=== PATIENT | female | born 1960 | race Caucasian/White ===

== ENCOUNTER → 2017-09-17 | Outpatient (CLI) | payer BC ==
--- NOTE | 2017-09-18 12:20 | USB ---
Reason for exam: clinical finding. History: Patient is postmenopausal. Family history of breast cancer in maternal grandmother and breast cancer in mother at age 60. Benign MG stereo VAD BX RT of the right breast, August 01, 2013. Took hormonal contraceptives for 2 years. Physical Findings: Nurse Summary: all soft, nodular, movable (nurse ts). US Breast RT Right complete breast ultrasound includes all four quadrants, the retroareolar region and axilla. Finding demonstrates a 0.3 x 0.2 x 0.3cm lesion too small to characterize at 4 o'clock, a 0.7 x 0.3 x 0.5cm mixed lesion at 5 o'clock and a 0.5 x 0.4 x 0.3cm lesion too small to characterize at 11 o'clock. These results were verbally communicated with the patient and result sheet given to the patient on 09/17/17. ASSESSMENT: Probably benign, BI-RAD 3 RECOMMENDATION: Ultrasound of the right breast in 6 months. Return to routine screening mammogram schedule for both breasts. Manage on a clinical basis with regard to patient's resolved pain. Back on schedule for November 2017.
== END | disposition home or self-care (01) ==
LOC: RADUSWWP 15:25
PROVIDERS: ATTEND Obstetrics & Gynecology
DX: N64.4 Mastodynia (principal)

== ENCOUNTER 2017-11-13 08:42 | Day surgery (SDC) | payer BC ==
[2017-11-07 15:18] VITALS: BMI 41.1
[~2017-11-13 08:42] MED LIST: ceFAZolin IN SWFI 2 GM/20 ML SYRINGE IVP ONE
[2017-11-13] MEDS ORDERED: LIDOCAINE 1% 20 ML VIAL (10MG/ML) FOR IV START INTRADERMA ONE (09:37)
[2017-11-13] MEDS ORDERED: LACTATED RINGERS 1,000 ML IV ONE (09:37)
[2017-11-13] MEDS: DEXAMETHASONE SOD PHOSPHATE 4 MG/ML 1 ML VIAL IV ONE ×2 (09:38→13:08)
[2017-11-13] MEDS ORDERED: ONDANSETRON 4 MG/2 ML VIAL IVP ONE ×2 (09:38→12:17)
[2017-11-13] MEDS ORDERED: ONDANSETRON 4 MG/2 ML VIAL ONE (09:45)
[2017-11-13 09:46] LABS: Glucose,Whole Blood 164 mg/dL (75-99)
--- NOTE | 2017-11-13 10:18 | P.HPOR ---
History of Present Illness H&P Date: 11/13/17 Chief Complaint: Left knee pain The patient's a 56-year-old retired female who presents with progressive left knee pain for the past several months. She notes intermittent giving way. She' s been taking anti-inflammatories with minimal relief. Review of Systems Constitutional: Reports as per HPI Past Medical History Past Medical History: Diabetes Mellitus, Hyperlipidemia, Hypertension, Osteoarthritis (OA) History of Any Multi-Drug Resistant Organisms: None Reported Past Surgical History: Back Surgery, Hysterectomy Past Anesthesia/Blood Transfusion Reactions: Motion Sickness, Postoperative Nausea & Vomiting (PONV) Smoking Status: Never smoker - Past Family History Mother Family Medical History: Cancer Additional Family Medical History / Comment(s): BREAST CANCER Medications and Allergies Home Medications Medication Instructions Recorded Confirmed Type Chlorthalidone 50 mg PO DAILY 11/07/17 11/13/17 History Cinnamon Bark [Cinnamon] 1,000 mg PO DAILY 11/07/17 11/13/17 History Enalapril [Vasotec] 20 mg PO BID 11/07/17 11/13/17 History Garlic 1 each PO DAILY 11/07/17 11/13/17 History INSULIN LISPRO (humaLOG) [humaLOG] 10 units SQ 1000,1500 11/07/17 11/13/17 History INSULIN LISPRO (humaLOG) [humaLOG] 20 units SQ TID-W/MEALS 11/07/17 11/13/17 History Insulin Glargine [Lantus] 70 unit SQ HS 11/07/17 11/13/17 History [place]-3 Fatty Acids/Fish Oil [Fish 1 each PO DAILY 11/07/17 11/13/17 History Oil 1,000 mg Softgel] Pravastatin Sodium [Pravachol] 40 mg PO DAILY 11/07/17 11/13/17 History Allergies Allergy/AdvReac Type Severity Reaction Status Date / Time amoxicillin Allergy Rash/Hives Verified 11/13/17 09:24 erythromycin base Allergy Rash/Hives Verified 11/13/17 09:24 orange Allergy Rash/Hives Verified 11/13/17 09:24 Penicillins Allergy Rash/Hives Verified 11/13/17 09:24 Physical Examination - Knee left Appearance: effusion Effusion grade: grade 1 Tenderness with palpation: medial Pain: with flexion Gait: limping ROM: extension: -10 degrees ROM: flexion: 100 degrees Strength: extension: 5/5 Strength: flexion: 5/5 Meniscal tests: medial meniscal tests: positive (Positive Steven's) Results - Labs Labs: Abnormal Lab Results - Last 24 Hours (Table) 11/13/17 Range/Units 09:42 POC Glucose (mg/dL) 164 H (75-99) mg/dL - Diagnostic results Knee x-ray: image reviewed (Moderate to severe left knee medial compartment osteoarthrosis) Assessment and Plan Assessment: Left knee internal derangementmedial meniscal tear Left knee medial compartment osteoarthrosis Insulin-dependent diabetes Increased body mass index (1) Acute meniscal tear of left knee Current Visit: Yes Status: Acute Priority: Medium Code(s): S83.207A - UNSP TEAR OF UNSP MENISCUS, CURRENT INJURY, LEFT KNEE, INIT SNOMED Code(s): 731412213 Plan: I talked to the patient length regarding her condition and treatment options. At this point she was having significant pain and mechanical symptoms that limited her. She opted to proceed with arthroscopic evaluation with probable partial medial meniscectomy. Risks and benefits were discussed at length in layman's terms. We will likely perform that as an outpatient procedure.
[2017-11-13] MEDS ORDERED: SUCCINYLCHOLINE CHLORIDE 100 MG/5 ML SYR IV ONE (10:39)
[2017-11-13] MEDS ORDERED: NEOSTIGMINE 1 MG/ML 10 ML VIAL ONE (10:39)
[2017-11-13] MEDS ORDERED: fentaNYL (PF) 50 MCG/ML 2 ML AMP ONE (10:39)
[2017-11-13] MEDS ORDERED: KETOROLAC 30 MG/ML 1 ML VIAL ONE (10:39)
[2017-11-13] MEDS ORDERED: LIDOCAINE 1% INJ 10MG/ML (20 ML MDV) ONE (10:39)
[2017-11-13] MEDS ORDERED: MIDAZOLAM 2 MG/2 ML VIAL ONE (10:39)
[2017-11-13] MEDS ORDERED: SODIUM CHLORIDE 0.9% 50 ML with CLINDAMYCIN 600 MG IV ONE ×2 (10:39)
[2017-11-13] MEDS ORDERED: GLYCOPYRROLATE 0.2 MG/ML 2 ML VIAL ONE (10:39)
[2017-11-13] MEDS ORDERED: ROCURONIUM BROMIDE 10 MG/ML 10 ML VIAL IV ONE (10:39)
[2017-11-13] MEDS ORDERED: PROPOFOL 10 MG/ML 20 ML VIAL IV ONE (10:39)
[2017-11-13] MEDS ORDERED: EPINEPHrine (PF) 1 ML in SODIUM CHLORIDE 0.9% IRRIGATIO 3,000 ML IRRIGATION ONE ×4 (10:44)
[2017-11-13 11:46] VITALS: TEMP 97
--- NOTE | 2017-11-13 11:46 | P.OP ---
Date of Procedure: 11/13/17 Preoperative Diagnosis: left knee internal derangement Postoperative Diagnosis: left knee posterior medial meniscal tear/anterior to posterior lateral meniscal tear/ reactive synovitis the medial, lateral, and patellofemoral compartments. Procedure(s) Performed: left knee arthroscopic partial medial meniscectomy/partial lateral meniscectomy / partial synovectomy of the medial, lateral, and patellofemoral compartments Anesthesia: GETA Surgeon: Dev Multani Estimated Blood Loss (ml): 10 Pathology: none sent Condition: stable Disposition: PACU Indications for Procedure: The patient is a 56-year-old female who presents with progressive left knee pain and mechanical symptoms despite conservative measures. A discussion of the risks and benefits of operative intervention versus continued conservative measures was made with patient. She opted to proceed with surgery. operative options to include arthroscopic treatment versus total knee arthroplasty was also discussed. At this point she opted to proceed with arthroscopy. Specific risks of this procedure to include infection, neurovascular injury, development of blood clots, possible incomplete resolution of symptoms, possible worsening symptoms and need for subsequent procedures was discussed. Informed consent was obtained. Operative Findings: as below Description of Procedure: The patient was brought to the operating room, and after induction of general anesthesia examined the left knee. Collaterals were stable, Luis was negative, and posterior drawer was negative. left lower extremity was prepped and draped in normal fashion. a superior lateral portal was made through a 3 mm skin incision superior and lateral to the patella. this was used for outflow. A moderate effusion was encountered. a lateral portal was made through a 5 mm vertical skin incision lateral to the patella tendon above the joint line. diagnostic arthroscopy was performed. a medial portals made through a similar incision medial to the patella tendon above the joint line. on inspection of the medial compartment, patient was noted have a complex tear involving the posterior horn of the medial meniscus in the white- white junction. This was debrided back to stable base with straight baskets and a motorized shaver. The edges were contoured. Grade 3/4 chondral changes were noted diffusely involving the medial aspect the medial femoral condyle and medial tibial plateau. reactive synovitis from anterior medial and anterolateral compartment was debrided with a motorized shaver. on inspection of the notch, anterior cruciate ligament appeared to be intact. On inspection of the lateral compartment, a complex tear involving the anterior horn as well as the posterior horn of the lateral meniscus in the white- junction was noted. This debrided back to stable base with straight baskets and a motorized shaver. The edges were contoured. Grade 2-3 chondral changes were noted diffusely involving the distal portion of the lateral femoral condyle. on inspection of the patellofemoral articulation, reactive synovitis was noted andwas debrided with a motorized shaver. grade 2-3 chondral changes were noted diffusely. The gutters were clear debris. The knee was then thoroughly irrigated. The portals were closed with Steri-Strips. a sterile dressing was applied in addition to a compression stocking. The patient was awoken from general anesthesia and transferred to recovery room in good condition. Blood loss was estimated at 10 mL. No complications were incurred.
[2017-11-13 12:03] LABS: Glucose,Whole Blood 165 mg/dL (75-99)
[2017-11-13] MEDS: HYDROmorphone 1 MG/ML 1 ML SYRINGE IVP ONE ×4 (12:11→12:32)
[2017-11-13] MEDS ORDERED: METOCLOPRAMIDE 5 MG/ML 2 ML VIAL IVP STA (13:02)
[2017-11-13] MEDS ORDERED: SCOPOLAMINE 1.5MG/72HR PATCH TRANSDERM ONE (13:03)
[2017-11-13 13:08] VITALS: RESP 18
[2017-11-13] MEDS ORDERED: DEXAMETHASONE SOD PHOSPHATE 10 MG/ML 1 ML VIAL IV STA (13:11)
[2017-11-13] MEDS ORDERED: PROMETHAZINE INJ 6.25 MG in SODIUM CHLORIDE 0.9% 50 ML IVPB PRN (13:44)
[2017-11-13] MEDS ORDERED: PROMETHAZINE INJ 25 MG/ML 1 ML VIAL IVPB ONE (13:48)
[2017-11-13 14:06] VITALS: PULSE 85
[2017-11-13 14:30] VITALS: BP 126/70
[2017-11-13 14:43] LABS: Glucose,Whole Blood 235 mg/dL (75-99)
== END 2017-11-13 15:13 | disposition home or self-care (01) ==
LOC: OR 08:42
PROVIDERS: ATTEND Orthopaedic Surgery
DX: S83.242A Other tear of medial meniscus, current injury, left knee, initial encounter (principal); S83.282A Other tear of lateral meniscus, current injury, left knee, initial encounter; X58.XXXA Exposure to other specified factors, initial encounter; M65.862 Other synovitis and tenosynovitis, left lower leg; M19.90 Unspecified osteoarthritis, unspecified site; I10 Essential (primary) hypertension; E11.9 Type 2 diabetes mellitus without complications; Z79.4 Long term (current) use of insulin; Z79.82 Long term (current) use of aspirin; Z79.899 Other long term (current) drug therapy; Z88.1 Allergy status to other antibiotic agents; Z88.0 Allergy status to penicillin; Z91.018 Allergy to other foods
CPT/HCPCS: 29880; J2250; J1100; J2550; J2710; J2765; J2405; J0171; J2001; J3010; J1885; J1170; J0330; J2704

== ENCOUNTER → 2019-01-30 | Outpatient (CLI) | payer BC ==
--- NOTE | 2019-01-31 13:54 | MM ---
Reason for exam: screening (asymptomatic). Last mammogram was performed 1 year and 1 month ago. History: Patient is postmenopausal. Family history of breast cancer in maternal grandmother and breast cancer in mother at age 60. Benign MG stereo VAD BX RT of the right breast, August 01, 2013. Took hormonal contraceptives for 2 years. Physical Findings: A clinical breast exam by your physician is recommended on an annual basis and results should be correlated with mammographic findings. MG Screening Mammo w CAD Bilateral CC, MLO, and XCCL view(s) were taken. Prior study comparison: January 09, 2018, bilateral MG diagnostic mammo w CAD [facility]ITA. December 18, 2016, bilateral MG screening mammo w CAD. The breast tissue is heterogeneously dense. This may lower the sensitivity of mammography. Benign appearing bilateral calcifications. No suspicious abnormality. Right breast biopsy marker noted. No significant changes when compared with prior studies. ASSESSMENT: Benign, BI-RAD 2 RECOMMENDATION: Routine screening mammogram of both breasts in 1 year.
== END | disposition home or self-care (01) ==
LOC: RADMAMWWP 09:27
PROVIDERS: ATTEND Obstetrics & Gynecology
DX: Z12.31 Encounter for screening mammogram for malignant neoplasm of breast (principal)
CPT/HCPCS: 77067

== ENCOUNTER → 2019-12-23 | Outpatient (CLI) | payer BC ==
[2019-12-23 15:39] LABS: African American GFR (CKD) >90 (>60 ml/min/1.73 sqM); Blood Urea Nitrogen 25 mg/dL (7-17); Non-African American GFR(CKD) 85 (>60 ml/min/1.73 sqM)
--- NOTE | 2019-12-23 22:39 | CT ---
EXAMINATION TYPE: CT abdomen pelvis w con DATE OF EXAM: 12/23/2019 HISTORY: Left lower quadrant pain and constipation. CT DLP: 1710.3mGycm Automated Exposure Control for Dose Reduction was Utilized. CONTRAST: CT scan of the abdomen and pelvis is performed with oral and with IV Contrast, patient injected with 100 mL of Isovue 300. COMPARISON: None. FINDINGS: LUNG BASES: No significant abnormality is appreciated. LIVER/GB: No significant abnormality is appreciated. PANCREAS: No significant abnormality is seen. SPLEEN: No significant abnormality is seen. ADRENALS: No significant abnormality is seen. KIDNEYS: Symmetrically measured uptake and excretion without hydronephrosis seen bilaterally. BOWEL: Oral contrast reaches ileal loops in the right abdomen. No suspicious small or large bowel dil atation. A few distal colonic diverticula. UTERUS/ADNEXA: Uterus surgically absent or markedly atrophic. Scattered small pelvic phleboliths. LYMPH NODES: No greater than 1cm abdominal or pelvic lymph nodes are appreciated. OSSEOUS STRUCTURES: Moderate multilevel spurring in the spine. [id number] disc space narrowing with vacuum disc phenomenon L3-L4 level. Moderate to severe disc space narrowing L5-S1 level. Spondyl olisthesis with multilevel vacuum disc phenomena and disc space narrowing and a lower thoracic spine. Moderate axial joint space loss both hips. Facet arthropathy lower lumbar levels. OTHER: No significant additional abnormality is seen. IMPRESSION: Mild distal colonic diverticulosis. No CT evidence for acute diverticulitis. No bowel obs truction. No significant colonic fecal distention. No acute findings are evident.
== END | disposition home or self-care (01) ==
LOC: RADCTMAIN 14:20
PROVIDERS: ATTEND Family Medicine
DX: K57.30 Diverticulosis of large intestine without perforation or abscess without bleeding (principal)
CPT/HCPCS: 82565; 84520; 74177; 36415; Q9967

== ENCOUNTER 2020-01-19 06:47 | Day surgery (SDC) | payer BC ==
[2020-01-15 10:11] VITALS: BMI 41.1
[~2020-01-19 06:47] MED LIST changes: +LACTATED RINGERS 1,000 ML IV SCH; -ceFAZolin IN SWFI 2 GM/20 ML SYRINGE IVP ONE
[2020-01-19] MEDS ORDERED: LACTATED RINGERS 1,000 ML IV ONE (07:13)
[2020-01-19 07:14] VITALS: TEMP 97.8
[2020-01-19] MEDS ORDERED: LIDOCAINE 1% (10MG/ML) FOR IV START INTRADERMA ONE (07:14)
[2020-01-19 07:23] LABS: Glucose,Whole Blood 123 mg/dL (75-99)
[2020-01-19] MEDS ORDERED: LIDOCAINE 1% INJ 10MG/ML (20 ML MDV) ONE (07:37)
[2020-01-19] MEDS ORDERED: PROPOFOL 10 MG/ML 20 ML VIAL IV ONE (07:37)
[2020-01-19 08:07] VITALS: RESP 16
--- NOTE | 2020-01-19 08:09 | P.PCN ---
Date of Procedure: 01/19/20 Description of Procedure: BRIEF HISTORY: Patient is a 59-year-old female presenting for evaluation of constipation and left lower quadrant pain with colonoscopy. She reports her last colonoscopy was 8 years ago. No family history of colon cancer reported. PROCEDURE PERFORMED: Colonoscopy with polypectomy. PREOPERATIVE DIAGNOSIS: Left lower quadrant abdominal pain, constipation. ESTIMATED BLOOD LOSS: Minimal. IV sedation per Anesthesia. PROCEDURE: After informed consent was obtained, the patient, was brought into the endoscopy unit. IV sedation was administered by Anesthesia under continuous monitoring. Digital rectal examination was normal. Initially the Olympus CF-190 flexible video colonoscope was then inserted in the rectum, gradually advanced into the cecum without any difficulty. Careful examination was performed as the scope was gradually being withdrawn. Ileocecal valve and the appendiceal orifice were visualized and appeared normal. Prep was excellent. Mucosa of the cecum, ascending colon, transverse colon, descending colon, sigmoid colon, and rectum appeared normal. A 5 mm ascending colon polyp was removed with cold snare polypectomy. Retroflexion was performed in the rectum and no lesions were seen, low-grade internal hemorrhoids seen. The patient tolerated the procedure well. IMPRESSION: Flat ascending colon polyp removed with cold snare. Internal hemorrhoids. RECOMMENDATIONS: Findings of this examination were discussed with the patient and her family. Okay to resume diet. Okay to medication. Await pathology from polypectomy. Recommend repeat colonoscopy in 7 years for colon polyps pending pathology.
[2020-01-19 08:19] VITALS: BP 127/67; PULSE 62
== END 2020-01-19 08:45 | disposition home or self-care (01) ==
LOC: ORWHC2ENDO 06:47
PROVIDERS: ATTEND Internal Medicine
DX: K63.5 Polyp of colon (principal); K64.8 Other hemorrhoids; I10 Essential (primary) hypertension; E78.5 Hyperlipidemia, unspecified; E11.9 Type 2 diabetes mellitus without complications; M19.90 Unspecified osteoarthritis, unspecified site; Z88.0 Allergy status to penicillin; Z88.1 Allergy status to other antibiotic agents; Z79.4 Long term (current) use of insulin; Z79.82 Long term (current) use of aspirin; Z79.899 Other long term (current) drug therapy; Z90.710 Acquired absence of both cervix and uterus; Z98.890 Other specified postprocedural states
CPT/HCPCS: 88305; 45385; J2001; J2704

== ENCOUNTER → 2020-05-04 | Outpatient (CLI) | payer BC ==
--- NOTE | 2020-05-04 11:55 | MM ---
Reason for exam: screening (asymptomatic). Last mammogram was performed 1 year and 3 months ago. History: Patient is postmenopausal. Family history of breast cancer in maternal grandmother and breast cancer in mother at age 60. Benign MG stereo VAD BX RT of the right breast, August 01, 2013. Took hormonal contraceptives for 2 years. Physical Findings: A clinical breast exam by your physician is recommended on an annual basis and results should be correlated with mammographic findings. MG Screening Mammo w CAD Bilateral CC and MLO view(s) were taken. Prior study comparison: January 30, 2019, bilateral MG screening mammo w CAD. January 09, 2018, bilateral MG diagnostic mammo w CAD RITA. The breast tissue is heterogeneously dense. This may lower the sensitivity of mammography. There are benign appearing round calcifications bilaterally. Previous mammotome biopsy in the right breast. There is no discrete abnormality. ASSESSMENT: Benign, BI-RAD 2 RECOMMENDATION: Routine screening mammogram of both breasts in 1 year.
--- NOTE | 2020-05-04 13:36 | BD ---
EXAMINATION TYPE: Axial Bone Density DATE OF EXAM: 05/04/2020 COMPARISON: Prior DEXA bone scan October 12, 2014 CLINICAL HISTORY: Postmenopausal female. Height: 5 FT 3 1/2 IN Weight: 255 FRAX RISK QUESTIONS: Alcohol (3 or more units per day): NO Family History (Parent hip fracture): NO Glucocorticoids (More than 3mos): NO (Ex: prednisone, prednisolone, methylprednisolone, dexamethasone, and hydrocortisone). History of Fracture in Adulthood: NO Secondary Osteoporosis: 1. Type 1 Diabetes: NO 2. Hyperthyroidism: NO 3. Menopause before 45: YES 4. Malnutrition: NO 5. Chronic liver disease: NO Rheumatoid Arthritis: NO Current Tobacco Use: NO RISK FACTORS HISTORY OF: Family History of Osteoporosis: NO Active: YES Diet low in dairy products/other sources of calcium: NO Postmenopausal woman: TOTAL HYST AGE 39 Take estrogen and/or progesterone medications: NONE Lost more than 2 inches in height since high school: YES Poor Health: YES MEDICATIONS: Additional Medications: HUMI LOG, LANTUS, ENALAPRIL, BLOOD PRESSURE MEDS, H2O PILL, PRAVASTATIN, Additional History: EXAM MEASUREMENTS: Bone mineral densitometry was performed using the [employer]. Bone mineral density as measured about the Lumbar spine is: ----- L1-L4(G/cm2): 1.350 T Score Values are as follows: ----- L2: -0.3 ----- L3: 1.2 ----- L4: 1.9 ----- L1-L4: 1.4 NO PREVIOUS Bone mineral density about the R hip (g/cm2): 1.150 Bone mineral density about the L hip (g/cm2): 1.147 T Score values are as follows: -----R Neck: 0.8 -----L Neck: 0.8 -----R Total: 1.4 -----L Total: 1.5 Bone mineral density has: DECREASED -3.0 % since study of: 2014 IMPRESSION: Normal (Values between +1 and -1 indicate normal bone mass) bone density remains present. Consider r epeating this study in 5 years or sooner if there is some new clinical indication. NOTE: T-SCORE=SD OF THE YOUNG ADULT MEAN.
== END ==
LOC: RADMAMWWP 07:04
PROVIDERS: ATTEND Obstetrics & Gynecology
DX: Z12.31 Encounter for screening mammogram for malignant neoplasm of breast (principal); Z80.3 Family history of malignant neoplasm of breast; Z78.0 Asymptomatic menopausal state
CPT/HCPCS: 77067; 77080

== ENCOUNTER → 2020-11-04 | Outpatient (CLI) | payer BC ==
--- NOTE | 2020-11-05 10:43 | ECHOF ---
Referral Reason:R01.1 cardiac murmur MEASUREMENTS -------- HEIGHT: 167.6 cm WEIGHT: 113.4 kg BP: RVIDd: 3.6 cm (< 3.3) IVSd: 1.3 cm (0.6 - 1.1) LVIDd: 5.1 cm (3.9 - 5.3) LVPWd: 1.2 cm (0.6 - 1.1) IVSs: 2.1 cm LVIDs: 2.6 cm LVPWs: 2.2 cm LAESV Index (A-L): 31.61 ml/m Ao Diam: 3.7 cm (2.0 - 3.7) AV Cusp: 2.0 cm (1.5 - 2.6) MV EXCURSION: 14.703 mm (> 18.000) MV EF SLOPE: 52 mm/s (70 - 150) EPSS: 0.5 cm MV E Donis: 0.74 m/s MV DecT: 237 ms MV A Donis: 0.98 m/s MV E/A Ratio: 0.75 RAP: 5.00 mmHg RVSP: 19.41 mmHg FINDINGS -------- Sinus rhythm. This was a technically adequate study. The left ventricular size is normal. There is mild concentric left ventricular hypertrophy. Overa ll left ventricular systolic function is normal with, an EF between 55 - 60 %. The diastolic fillin g pattern is normal for the age of the patient 12.82. The right ventricle is mildly enlarged. LA is midly dilated 29-33ml/m2. The right atrial size is normal. Interatrial and interventricular septum intact. There is no evidence of aortic regurgitation. There is no evidence of aortic stenosis. Mild mitral regurgitation is present. Mild tricuspid regurgitation present. There is no evidence of pulmonary hypertension. The right v entricular systolic pressure, as measured by Doppler, is 19.41mmHg. There is no pulmonic regurgitation present. The aortic root size is normal. IVC Not well visulized. There is no pericardial effusion. CONCLUSIONS -------- 1. The left ventricular size is normal. 2. There is mild concentric left ventricular hypertrophy. 3. Overall left ventricular systolic function is normal with, an EF between 55 - 60 %. 4. The diastolic filling pattern is normal for the age of the patient 12.82 5. The right ventricle is mildly enlarged. 6. LA is midly dilated 29-33ml/m2. 7. Mild mitral regurgitation is present. 8. Mild tricuspid regurgitation present. AUTO WRECKER: Teressa Kimball RDCS
== END | disposition home or self-care (01) ==
LOC: RADECHMAIN 12:00
PROVIDERS: ATTEND Family Medicine
DX: I08.1 Rheumatic disorders of both mitral and tricuspid valves (principal)
CPT/HCPCS: 93306

== ENCOUNTER → 2021-05-19 | Outpatient (CLI) | payer BC ==
--- NOTE | 2021-05-20 12:47 | MM ---
Reason for exam: screening (asymptomatic). Last mammogram was performed 1 year ago. History: Patient is postmenopausal. Family history of breast cancer in maternal grandmother and breast cancer in mother at age 60. Benign MG stereo VAD BX RT of the right breast, August 01, 2013. Took hormonal contraceptives for 2 years. Physical Findings: A clinical breast exam by your physician is recommended on an annual basis and results should be correlated with mammographic findings. MG Screening Mammo w CAD Bilateral CC and MLO view(s) were taken. Prior study comparison: May 04, 2020, bilateral MG screening mammo w CAD. January 30, 2019, bilateral MG screening mammo w CAD. There are scattered fibroglandular densities. Previous mammotome biopsy in the right breast. 12 o'clock areas of focal asymmetry right breast are more defined. ASSESSMENT: Incomplete: need additional imaging evaluation, BI-RAD 0 RECOMMENDATION: Special view mammogram of the right breast. (3D) If lesion persists on supplemental views, image directed ultrasound is recommended. [facility] will attempt to contact patient to return for supplemental views and ultrasound if indicated.
== END | disposition home or self-care (01) ==
LOC: RADMAMWWP 07:07
PROVIDERS: ATTEND Obstetrics & Gynecology
DX: Z12.31 Encounter for screening mammogram for malignant neoplasm of breast (principal); Z78.0 Asymptomatic menopausal state; Z80.3 Family history of malignant neoplasm of breast
CPT/HCPCS: 77067

== ENCOUNTER → 2021-05-25 | Outpatient (CLI) | payer BC ==
--- NOTE | 2021-05-25 09:00 | MM ---
Reason for exam: additional evaluation requested from abnormal screening. Last mammogram was performed less than 1 month ago. History: Patient is postmenopausal. Family history of breast cancer in maternal grandmother and breast cancer in mother at age 60. Benign MG stereo VAD BX RT of the right breast, August 01, 2013. Took hormonal contraceptives for 2 years. Physical Findings: A clinical breast exam by your physician is recommended on an annual basis and results should be correlated with mammographic findings. MG Work Up Mamm w CAD RT Spot compression CC, spot compression MLO, and ML view(s) were taken of the right breast. Prior study comparison: May 19, 2021, bilateral MG screening mammo w CAD. May 04, 2020, bilateral MG screening mammo w CAD. The breast tissue is heterogeneously dense. This may lower the sensitivity of mammography. There are benign appearing grouped, round calcifications in the right breast. Previous mammotome biopsy in the right breast. No distinct lesion persists on additional views. ASSESSMENT: Benign, BI-RAD 2 RECOMMENDATION: Return to routine screening mammogram schedule for both breasts.
== END | disposition home or self-care (01) ==
LOC: RADMAMWWP 08:11
PROVIDERS: ATTEND Obstetrics & Gynecology
DX: R92.8 Other abnormal and inconclusive findings on diagnostic imaging of breast (principal); Z78.0 Asymptomatic menopausal state; Z80.3 Family history of malignant neoplasm of breast
CPT/HCPCS: 77065

== ENCOUNTER 2022-03-21 02:18 | Emergency (ER) | payer BC ==
[2022-03-21 02:32] VITALS: TEMP 97
[2022-03-21 03:47] LABS: Basophils # (A) 0.1 k/uL (0-0.2); Basophils % (A) 1 %; Eosinophils # (A) 1.7 k/uL (0-0.7); Eosinophils % (A) 16 %; HCT 42.8 % (34.0-46.0); HGB 14.8 gm/dL (11.4-16.0); Lymphocytes # (A) 3.7 k/uL (1.0-4.8); Lymphocytes % (A) 37 %; MCH 30.5 pg (25.0-35.0); MCHC 34.5 g/dL (31.0-37.0); MCV 88.4 fL (80.0-100.0); Mean Platelet Volume 7.1; Monocytes # (A) 0.5 k/uL (0-1.0); Monocytes % (A) 5 %; Neutrophils # (A) 3.9 k/uL (1.3-7.7); Neutrophils % (A) 39 %; Platelet Count 279 k/uL (150-450); RBC 4.84 m/uL (3.80-5.40); RDW 12.3 % (11.5-15.5); WBC 10.1 k/uL (3.8-10.6)
[2022-03-21 04:10] LABS: ALT 23 U/L (4-34); AST 26 U/L (14-36); African American GFR (CKD) >90 (>60 ml/min/1.73 sqM); Albumin 4.4 g/dL (3.5-5.0); Alkaline Phosphatase 49 U/L (38-126); Anion Gap 9 mmol/L; Blood Urea Nitrogen 29 mg/dL (7-17); Calcium 9.1 mg/dL (8.4-10.2); Carbon Dioxide 28 mmol/L (22-30); Chloride 99 mmol/L (98-107); Glucose 113 mg/dL (74-99); Lipase 61 U/L (23-300); Non-African American GFR(CKD) >90 (>60 ml/min/1.73 sqM); Potassium 3.5 mmol/L (3.5-5.1); Sodium 136 mmol/L (137-145); Total Bilirubin 0.8 mg/dL (0.2-1.3); Total Protein 7.2 g/dL (6.3-8.2)
[2022-03-21 04:16] LABS: Appearance,Urine Clear (Clear); Bilirubin,Urine Negative (Negative); Blood,Urine Negative (Negative); Color,Urine Light Yellow; Glucose,Urine (UA) Negative (Negative); Ketones,Urine Negative (Negative); Leukocyte Esterase,Urine Negative (Negative); Nitrite,Urine Negative (Negative); PH, Urine 6.5 (5.0-8.0); Protein,Urine Negative (Negative); Specific Gravity,Urine 1.014 (1.001-1.035); Urobilinogen,Urine <2.0 mg/dL (<2.0)
[2022-03-21] MEDS ORDERED: MAG HYDROX/AL HYDROX/SIMETH 30 ML, HYOSCYAMINE ELIXIR 10 ML, LIDOCAINE VISCOUS 2% 10 ML PO STA ×3 (04:37)
[2022-03-21] MEDS ORDERED: SODIUM CHLORIDE 0.9% 1,000 ML IV ONE (04:37)
[2022-03-21] MEDS ORDERED: ONDANSETRON 4 MG/2 ML VIAL IVP STA (04:37)
[2022-03-21 05:51] VITALS: PULSE 68; RESP 16
--- NOTE | 2022-03-21 06:36 | ED ---
Abdominal Pain HPI - General Chief Complaint: Abdominal Pain Stated Complaint: Diarrhea, Vomiting Time Seen by Provider: 03/21/22 03:44 Source: patient Mode of arrival: ambulatory Limitations: no limitations - History of Present Illness Initial Comments: This patient is a 61-year-old woman who presents to have evaluation of nausea vomiting and diarrhea going back 5-6 days now. She states that things had started with some vomiting, and then stopped for a bit this was followed by recurrence of vomiting but mainly diarrhea. She has had some intermittent abdominal cramping but no abdominal pain now. The cramping was diffuse, throughout the abdomen. She has not noted fever or chills. No change in urination noted. No hematemesis. No bloody or tarry stools. She has managed keep down some fluids MD Complaint: abdominal pain -: days(s) Location: diffuse Severity: mild Quality: cramping Consistency: intermittent, now resolved Improves With: nothing Worsens With: nothing Associated Symptoms: nausea, vomiting, diarrhea - Related Data Home Medications Medication Instructions Recorded Confirmed Chlorthalidone 50 mg PO DAILY 11/07/17 01/15/20 Cinnamon Bark [Cinnamon] 1,000 mg PO DAILY 11/07/17 01/15/20 Enalapril [Vasotec] 20 mg PO BID 11/07/17 01/15/20 Garlic 1 each PO DAILY 11/07/17 01/15/20 INSULIN LISPRO (humaLOG) [humaLOG] 10 units SQ 1000,1500 11/07/17 01/15/20 INSULIN LISPRO (humaLOG) [humaLOG] 22 units SQ TID-W/MEALS 11/07/17 01/15/20 Insulin Glargine [Lantus] 72 unit SQ HS 11/07/17 01/15/20 [place]-3 Fatty Acids/Fish Oil [Fish 1 each PO DAILY 11/07/17 01/15/20 Oil 1,000 mg Softgel] Pravastatin Sodium [Pravachol] 40 mg PO DAILY 11/07/17 01/15/20 Ascorbic Acid [Vitamin C] 500 mg PO DAILY 01/15/20 01/15/20 Aspirin 325 mg PO DAILY 01/15/20 01/15/20 Cranberry Fruit Extract [Cranberry] 200 mg PO DAILY 01/15/20 01/15/20 Potassium Gluconate [Potassium 99 mg PO DAILY 01/15/20 01/15/20 Gluconate ER] Previous Rx's Medication Instructions Recorded Famotidine [Pepcid] 20 mg PO BID #14 tablet 03/21/22 Ondansetron Odt [Zofran ODT] 4 mg PO Q8HR PRN #10 tab 03/21/22 Allergies Allergy/AdvReac Type Severity Reaction Status Date / Time amoxicillin Allergy Rash/Hives Verified 03/21/22 02:29 erythromycin base Allergy Rash/Hives Verified 03/21/22 02:29 orange Allergy Rash/Hives Verified 03/21/22 02:29 Penicillins Allergy Rash/Hives Verified 03/21/22 02:29 Review of Systems ROS Statement: Those systems with pertinent positive or pertinent negative responses have been documented in the HPI. ROS Other: All systems not noted in ROS Statement are negative. Constitutional: Reports: weakness. Denies: fever, chills Respiratory: Denies: cough, dyspnea Cardiovascular: Denies: chest pain, palpitations, edema Gastrointestinal: Reports: abdominal pain, nausea, vomiting, diarrhea. Denies: hematemesis, melena, hematochezia Genitourinary: Denies: dysuria, hematuria Musculoskeletal: Denies: back pain Skin: Denies: rash Neurological: Denies: headache, weakness Past Medical History Past Medical History: Diabetes Mellitus, Hyperlipidemia, Hypertension, Ost eoarthritis (OA) Additional Past Medical History / Comment(s): diverticulitis History of Any Multi-Drug Resistant Organisms: None Reported Past Surgical History: Back Surgery, Hysterectomy Additional Past Surgical History / Comment(s): bialteral knee scope Past Anesthesia/Blood Transfusion Reactions: Previous Problems w/ Anesthesia, Motion Sickness, Postoperative Nausea & Vomiting (PONV) Additional Past Anesthesia/Blood Transfusion Reaction / Comment(s): after arthroscopy took long time to wake up Past Psychological History: No Psychological Hx Reported Smoking Status: Never smoker Past Alcohol Use History: None Reported Past Drug Use History: None Reported - Past Family History Mother Family Medical History: Cancer General Exam Limitations: no limitations General appearance: alert, in no apparent distress Head exam: Present: atraumatic, normocephalic Eye exam: Present: normal appearance. Absent: scleral icterus, conjunctival injection Neck exam: Present: normal inspection Respiratory exam: Present: normal lung sounds bilaterally. Absent: respiratory distress, wheezes, rales, rhonchi, stridor Cardiovascular Exam: Present: regular rate, normal rhythm, normal heart sounds. Absent: systolic murmur, diastolic murmur, rubs, gallop GI/Abdominal exam: Present: soft. Absent: distended, tenderness, guarding, rebound, rigid, mass, pulsatile mass, hernia Extremities exam: Present: normal inspection, normal capillary refill. Absent: pedal edema, calf tenderness Back exam: Present: normal inspection. Absent: CVA tenderness (R), CVA tenderness (L) Neurological exam: Present: alert Skin exam: Present: warm, dry, intact, normal color. Absent: rash Course Vital Signs 03/21/22 03/21/22 03/21/22 02:29 05:51 06:40 Temperature 97.0 F L Pulse Rate 79 68 68 Respiratory 18 16 16 Rate Blood Pressure 135/79 124/105 117/68 O2 Sat by Pulse 97 97 Oximetry Medical Decision Making - Medical Decision Making This patient is a 61-year-old woman here to have evaluation of nausea, vomiting and diarrhea. Her exam is denying, there is no abdominal tenderness. The workup does reveal mild degree of dehydration, based on the BUN to creatinine ratio being elevated. The patient had been given some fluids and antiemetic and is feeling much better. We did discuss appropriate further care and follow-up as well as return parameters. Was pt. sent in by a medical professional or institution? @ -No Did you speak to anyone other than the patient for history? @ -[no Did you review nursing and triage notes? @ -[agree Were old charts reviewed? @ -[no Differential Diagnosis? @ -Differential Abdominal Pain Women: Appendicitis, Cholecystitis, diverticulosis, ischemic bowel, pancreatitis, hepatitis, UTI, gastroenteritis, peptic ulcer disease, this is not meant to be an all-inclusive list EKG interpreted by me (3pts min.)? @ -[ X-rays interpreted by me (1pt min.)? @ - CT interpreted by me (1pt min.)? @ - U/S interpreted by me (1pt. min.)? @ -[none] What testing was considered but not performed? (CT, X-rays, U/S, labs)? Why? @ [Computed tomography scan was considered, however the patient's physical exam is completely unremarkable and the labs were good What meds were considered but not given? Why? @ -[none] Did you discuss the management of the patient with other professionals? @ -[No Did you reconcile home meds? @ -[no Was smoking cessation discussed for >3mins.? @ -[no Was critical care preformed (if so, how long)? @ -[none] Were there social determinants of health that impacted care today? How? (Homelessness, low income, unemployed, alcoholism, drug addiction, transportation, low edu. Level, literacy, decrease access to med. care, custodial, rehab)? @ -[no Was there de-escalation of care discussed even if they declined? (Discuss DNR or withdrawal of care, Hospice)? @ -[No What co-morbidities impacted this encounter? (DM, HTN, Smoking, COPD, CAD, Cancer, CVA, Hep., AIDS, mental health diagnosis, sleep apnea, morbid obesity)? @ -[none Was patient admitted / discharged? @ -[Discharged Undiagnosed new problem with uncertain prognosis? @ -[none] Drug Therapy requiring intensive monitoring for toxicity (Heparin, Nitro, Insulin, Cardizem)? @ -[none] Were any procedures done? @ -[none] Diagnosis/symptom? @ -[Acute gastroenteritis, uncomplicated Acute, or Chronic, or Acute on Chronic? @ -[Acute Uncomplicated (without systemic symptoms) or Complicated (systemic symptoms)? @ -[Uncomplicated Side effects of treatment? @ -[none] Exacerbation, Progression, or Severe Exacerbation] @ -[no] Poses a threat to life or bodily function? @ -[No - Lab Data Result diagrams: 03/21/22 03:41 03/21/22 03:41 Lab Results 03/21/22 03/21/22 03/21/22 Range/Units 03:41 03:41 03:41 WBC 10.1 (3.8-10.6) k/uL RBC 4.84 (3.80-5.40) m/uL Hgb 14.8 (11.4-16.0) gm/dL Hct 42.8 (34.0-46.0) % MCV 88.4 (80.0-100.0) fL MCH 30.5 (25.0-35.0) pg MCHC 34.5 (31.0-37.0) g/dL RDW 12.3 (11.5-15.5) % Plt Count 279 (150-450) k/uL MPV 7.1 Neutrophils % 39 % Lymphocytes % 37 % Monocytes % 5 % Eosinophils % 16 % Basophils % 1 % Neutrophils # 3.9 (1.3-7.7) k/uL Lymphocytes # 3.7 (1.0-4.8) k/uL Monocytes # 0.5 (0-1.0) k/uL Eosinophils # 1.7 H (0-0.7) k/uL Basophils # 0.1 (0-0.2) k/uL Sodium 136 L (137-145) mmol/L Potassium 3.5 (3.5-5.1) mmol/L Chloride 99 (98-107) mmol/L Carbon Dioxide 28 (22-30) mmol/L Anion Gap 9 mmol/L BUN 29 H (7-17) mg/dL Creatinine 0.69 (0.52-1.04) mg/dL Est GFR (CKD-EPI)AfAm >90 (>60 ml/min/1.73 sqM) Est GFR (CKD-EPI)NonAf >90 (>60 ml/min/1.73 sqM) Glucose 113 H (74-99) mg/dL Plasma Lactic Acid Bernardo 1.2 (0.7-2.0) mmol/L Calcium 9.1 (8.4-10.2) mg/dL Total Bilirubin 0.8 (0.2-1.3) mg/dL AST 26 (14-36) U/L ALT 23 (4-34) U/L Alkaline Phosphatase 49 (38-126) U/L Total Protein 7.2 (6.3-8.2) g/dL Albumin 4.4 (3.5-5.0) g/dL Lipase 61 (23-300) U/L Urine Color Urine Appearance (Clear) Urine pH (5.0-8.0) Ur Specific Ina (1.001-1.035) Urine Protein (Negative) Urine Glucose (UA) (Negative) Urine Ketones (Negative) Urine Blood (Negative) Urine Nitrite (Negative) Urine Bilirubin (Negative) Urine Urobilinogen (<2.0) mg/dL Ur Leukocyte Esterase (Negative) Influenza Type A (PCR) (Not Detectd) Influenza Type B (PCR) (Not Detectd) RSV (PCR) (Not Detectd) SARS-CoV-2 (PCR) (Not Detectd) 03/21/22 03/21/22 Range/Units 04:02 04:24 WBC (3.8-10.6) k/uL RBC (3.80-5.40) m/uL Hgb (11.4-16.0) gm/dL Hct (34.0-46.0) % MCV (80.0-100.0) fL MCH (25.0-35.0) pg MCHC (31.0-37.0) g/dL RDW (11.5-15.5) % Plt Count (150-450) k/uL MPV Neutrophils % % Lymphocytes % % Monocytes % % Eosinophils % % Basophils % % Neutrophils # (1.3-7.7) k/uL Lymphocytes # (1.0-4.8) k/uL Monocytes # (0-1.0) k/uL Eosinophils # (0-0.7) k/uL Basophils # (0-0.2) k/uL Sodium (137-145) mmol/L Potassium (3.5-5.1) mmol/L Chloride (98-107) mmol/L Carbon Dioxide (22-30) mmol/L Anion Gap mmol/L BUN (7-17) mg/dL Creatinine (0.52-1.04) mg/dL Est GFR (CKD-EPI)AfAm (>60 ml/min/1.73 sqM) Est GFR (CKD-EPI)NonAf (>60 ml/min/1.73 sqM) Glucose (74-99) mg/dL Plasma Lactic Acid Bernardo (0.7-2.0) mmol/L Calcium (8.4-10.2) mg/dL Total Bilirubin (0.2-1.3) mg/dL AST (14-36) U/L ALT (4-34) U/L Alkaline Phosphatase (38-126) U/L Total Protein (6.3-8.2) g/dL Albumin (3.5-5.0) g/dL Lipase (23-300) U/L Urine Color Light Yellow Urine Appearance Clear (Clear) Urine pH 6.5 (5.0-8.0) Ur Specific Ina 1.014 (1.001-1.035) Urine Protein Negative (Negative) Urine Glucose (UA) Negative (Negative) Urine Ketones Negative (Negative) Urine Blood Negative (Negative) Urine Nitrite Negative (Negative) Urine Bilirubin Negative (Negative) Urine Urobilinogen <2.0 (<2.0) mg/dL Ur Leukocyte Esterase Negative (Negative) Influenza Type A (PCR) Not Detected (Not Detectd) Influenza Type B (PCR) Not Detected (Not Detectd) RSV (PCR) Not Detected (Not Detectd) SARS-CoV-2 (PCR) Not Detected (Not Detectd) Disposition Clinical Impression: Gastroenteritis Disposition: HOME SELF-CARE Condition: Good Instructions (If sedation given, give patient instructions): Gastroenteritis (ED) Prescriptions: Famotidine [Pepcid] 20 mg PO BID #14 tablet Ondansetron Odt [Zofran ODT] 4 mg PO Q8HR PRN #10 tab PRN Reason: Nausea Is patient prescribed a controlled substance at d/c from ED?: No Referrals: Raquel Steiner III, MD [Primary Care Provider] - 1-2 days
[2022-03-21 06:41] VITALS: BP 117/68
== END 2022-03-21 06:45 | disposition home or self-care (01) ==
LOC: EC 02:18
DX: K52.9 Noninfective gastroenteritis and colitis, unspecified (principal); E11.9 Type 2 diabetes mellitus without complications; E78.5 Hyperlipidemia, unspecified; I10 Essential (primary) hypertension; M19.90 Unspecified osteoarthritis, unspecified site; Z88.0 Allergy status to penicillin; Z91.018 Allergy to other foods; Z88.1 Allergy status to other antibiotic agents; Z88.8 Allergy status to other drugs, medicaments and biological substances; Z79.4 Long term (current) use of insulin; Z79.82 Long term (current) use of aspirin; Z79.899 Other long term (current) drug therapy; Z20.822 Contact with and (suspected) exposure to COVID-19
CPT/HCPCS: 36415; 80053; 83605; 83690; 85025; 81003; 87636; 99284; 96374; 96361; J2405

== ENCOUNTER → 2022-05-26 | Outpatient (CLI) | payer BC ==
--- NOTE | 2022-05-29 16:51 | MM ---
Reason for Exam: Screening (asymptomatic). Last screening mammogram was performed 12 month(s) ago. Patient History: Menarche at age 10. First Full-Term at age 22. Left ovary removed at age 40. Right ovary removed at age 40. Hysterectomy at age 40. Postmenopausal. Patient has history of breast feeding. Patient used Hormonal Contraceptives for 2 years. 08/01/2013, Benign Core Biopsy on the right side. Maternal grandmother had breast cancer. Mother had breast cancer, age 60. Risk Values: Natasha 5 year model risk: 3.7%. NCI Lifetime model risk: 16.8%. Prior Study Comparison: 12/07/2015 Bilateral Screening Mammogram, [facility]. 12/18/2016 Bilateral Screening Mammogram, [facility]. 01/09/2018 Bilateral Diagnostic Mammogram, [facility]. 01/30/2019 Bilateral Screening Mammogram, [facility]. 05/04/2020 Bilateral Screening Mammogram, [facility]. 05/19/2021 Bilateral Screening Mammogram, [facility]. 05/25/2021 Right Diagnostic Mammogram, [facility]. Tissue Density: The breast tissue is heterogeneously dense. This may lower the sensitivity of mammography. Findings: Analyzed By CAD. Pattern is symmetrical and stable. No significant interval change is evident. A few scattered punctate calcifications are present. No suspicious groups of microcalcifications, spiculated or lobular masses, architectural distortion or other secondary signs of malignancy are mammographically apparent. Overall Assessment: Benign, BI-RAD 2 Management: Screening Mammogram of both breasts in 1 year. A negative mammogram report should not preclude additional follow up of suspicious palpable abnormalities. Patient should continue monthly self breast exam. A clinical breast exam by your physician is recommended on an annual basis and results should be correlated with mammographic findings. Electronically signed and approved by: Wade Leo D.O. Radiologis
== END | disposition home or self-care (01) ==
LOC: RADMAMWWP 08:03
PROVIDERS: ATTEND Obstetrics & Gynecology
DX: Z12.31 Encounter for screening mammogram for malignant neoplasm of breast (principal); Z78.0 Asymptomatic menopausal state; Z80.3 Family history of malignant neoplasm of breast
CPT/HCPCS: 77063; 77067

== ENCOUNTER → 2022-10-23 | Outpatient (CLI) | payer BC ==
--- NOTE | 2022-10-23 09:30 | US ---
EXAMINATION TYPE: US abdomen complete DATE OF EXAM: 10/23/2022 COMPARISON: NONE CLINICAL INDICATION: Female, 61 years old with history of pain; Pain and lump TECHNIQUE: Multiple sonographic images of the abdomen are obtained. FINDINGS: EXAM MEASUREMENTS: Liver Length: 19.9 cm Gallbladder Wall: 0.2 cm CBD: 0.5 cm Spleen: 10.4 cm Right Kidney: 13 x 4.5 x 5.6 cm Left Kidney: 11.7 x 6.0 x 4.8 cm Pancreas: Obscured by bowel gas. Liver: Increased attenuation. Gallbladder: No stones seen. Evidence for sonographic Harris's sign: No CBD: wnl Spleen: wnl Right Kidney: No hydronephrosis or masses seen Left Kidney: No hydronephrosis or masses seen Upper IVC: wnl Abd Aorta: wnl IMPRESSION: 1. No evidence for acute process., 2. Hepatic steatosis.
== END | disposition home or self-care (01) ==
LOC: RADUSWWP 08:03
PROVIDERS: ATTEND Family Medicine
DX: K76.0 Fatty (change of) liver, not elsewhere classified (principal); R10.33 Periumbilical pain
CPT/HCPCS: 76700

== ENCOUNTER 2023-04-27 09:10 | Emergency (ER) | payer BC ==
[2023-04-27 09:36] VITALS: RESP 18
--- NOTE | 2023-04-27 10:05 | ED ---
Nausea/Vomiting/Diarrhea HPI - General Source: patient, RN notes reviewed Mode of arrival: ambulatory Limitations: no limitations <Hugo Rodarte - Last Filed: 04/27/23 10:03> - General Source: patient, RN notes reviewed Mode of arrival: ambulatory Limitations: no limitations <DeviMarisol - Last Filed: 04/27/23 13:43> - General Chief complaint: Nausea/Vomiting/Diarrhea Stated complaint: Diarrhea Time Seen by Provider: 04/27/23 09:23 - History of Present Illness Initial comments: 62-year-old female presents emergency department with chief complaint of abdominal issues. Patient states that she has been having burning when she has a bowel movement, states there is some blood patient states she was constipated then did have some diarrhea after. Patient denies any significant vomiting but states that she had some nausea denies any other associated symptoms. (Hugo Rodarte) - Related Data Home Medications Medication Instructions Recorded Confirmed Chlorthalidone 50 mg PO DAILY 11/07/17 01/15/20 Cinnamon Bark [Cinnamon] 1,000 mg PO DAILY 11/07/17 01/15/20 Enalapril [Vasotec] 20 mg PO BID 11/07/17 01/15/20 Garlic 1 each PO DAILY 11/07/17 01/15/20 INSULIN LISPRO (humaLOG) [humaLOG] 10 units SQ 1000,1500 11/07/17 01/15/20 INSULIN LISPRO (humaLOG) [humaLOG] 22 units SQ TID-W/MEALS 11/07/17 01/15/20 Insulin Glargine [Lantus] 72 unit SQ HS 11/07/17 01/15/20 [place]-3 Fatty Acids/Fish Oil [Fish 1 each PO DAILY 11/07/17 01/15/20 Oil 1,000 mg Softgel] Pravastatin Sodium [Pravachol] 40 mg PO DAILY 11/07/17 01/15/20 Ascorbic Acid [Vitamin C] 500 mg PO DAILY 01/15/20 01/15/20 Aspirin 325 mg PO DAILY 01/15/20 01/15/20 Cranberry Fruit Extract [Cranberry] 200 mg PO DAILY 01/15/20 01/15/20 Potassium Gluconate [Potassium 99 mg PO DAILY 01/15/20 01/15/20 Gluconate ER] Previous Rx's Medication Instructions Recorded Famotidine [Pepcid] 20 mg PO BID #14 tablet 03/21/22 Ondansetron Odt [Zofran ODT] 4 mg PO Q8HR PRN #10 tab 03/21/22 Allergies Allergy/AdvReac Type Severity Reaction Status Date / Time amoxicillin Allergy Rash/Hives Verified 04/27/23 09:27 erythromycin base Allergy Rash/Hives Verified 04/27/23 09:27 orange Allergy Rash/Hives Verified 04/27/23 09:27 Penicillins Allergy Rash/Hives Verified 04/27/23 09:27 Review of Systems ROS Other: All systems not noted in ROS Statement are negative. <Hugo Rodarte - Last Filed: 04/27/23 10:03> ROS Other: All systems not noted in ROS Statement are negative. <Marisol Quinonez - Last Filed: 04/27/23 13:43> ROS Statement: Those systems with pertinent positive or pertinent negative responses have been documented in the HPI. Past Medical History Past Medical History: Diabetes Mellitus, Hyperlipidemia, Hypertension, Osteoarthritis (OA) Additional Past Medical History / Comment(s): diverticulitis History of Any Multi-Drug Resistant Organisms: None Reported Past Surgical History: Back Surgery, Hysterectomy Additional Past Surgical History / Comment(s): bialteral knee scope Past Anesthesia/Blood Transfusion Reactions: Previous Problems w/ Anesthesia, Motion Sickness, Postoperative Nausea & Vomiting (PONV) Additional Past Anesthesia/Blood Transfusion Reaction / Comment(s): after arthroscopy took long time to wake up Past Psychological History: No Psychological Hx Reported Smoking Status: Never smoker Past Alcohol Use History: None Reported Past Drug Use History: None Reported - Past Family History Mother Family Medical History: Cancer <Hugo Rodarte - Last Filed: 04/27/23 10:03> General Exam Limitations: no limitations <Hugo Rodarte - Last Filed: 04/27/23 10:03> Limitations: no limitations General appearance: alert, in no apparent distress Head exam: Present: atraumatic, normocephalic, normal inspection Eye exam: Present: normal appearance, PERRL, EOMI. Absent: scleral icterus, conjunctival injection, periorbital swelling ENT exam: Present: normal exam, mucous membranes moist Respiratory exam: Present: normal lung sounds bilaterally. Absent: respiratory distress, wheezes, rales, rhonchi, stridor Cardiovascular Exam: Present: regular rate, normal rhythm, normal heart sounds. Absent: systolic murmur, diastolic murmur, rubs, gallop, clicks GI/Abdominal exam: Present: soft, tenderness (periumbilical and left lower quadrant), normal bowel sounds <Marisol Quinonez - Last Filed: 04/27/23 13:43> - General Exam Comments Initial Comments: Visual Physical Exam Vital signs reviewed General: Well-appearing, nontoxic, no acute distress. Head: Normocephalic, atraumatic Eyes: PERRLA, EOMI ENT: Airway patent Chest: Nonlabored breathing Skin: No visual rash, normal skin tone Neuro: Alert and oriented 3 Musculoskeletal: No gross abnormalities (Hugo Rodarte) Is a 62-year-old female who presents to the ED with a chief complaint of abdominal pain and diarrhea with blood. Patient states that over the last week she has had abdominal discomfort and bloating associated with bowel movements resulting in straining and constipation. Throughout the week patient took a few doses of an [id number] stool softener which did not help with successful bowel movements. patient states that this morning she had multiple episodes of diarrhea with bright red blood and has taken 2 doses of an antidiarrheal. Patie nt denies history of hemorrhoids. Patient has a history of diverticulosis, and denies history of diverticulitis. Patient denies fevers and nausea. (Marisol Quinonez) Course Vital Signs 04/27/23 09:24 Temperature 98 F Pulse Rate 89 Respiratory 18 Rate Blood Pressure 161/80 O2 Sat by Pulse 98 Oximetry Medical Decision Making <Hugo Rodarte - Last Filed: 04/27/23 10:03> - Lab Data Result diagrams: 04/27/23 10:31 04/27/23 10:31 <Marisol Quinonez - Last Filed: 04/27/23 13:43> - Medical Decision Making I completed the quick note portion of this chart signed Hugo Rodarte PA-C (Hugo Rodarte) Was pt. sent in by a medical professional or institution ([facility], [facility], urgent care, hospital, or intermediate...) When possible be specific @ -No Did you speak to anyone other than the patient for history (EMS, parent, family, police, friend...)? What history was obtained from this source @ -No Did you review nursing and triage notes (agree or disagree)? Why? @ -I reviewed and agree with nursing and triage notes Were old charts reviewed (outside hosp., previous admission, EMS record, old EKG, old radiological studies, urgent care reports/EKG's, intermediate records)? Report findings @ -No old charts were reviewed Differential Diagnosis (chest pain, altered mental status, abdominal pain women, abdominal pain men, vaginal bleeding, weakness, fever, dyspnea, syncope, headache, dizziness, GI bleed, back pain, seizure, CVA, palpatations, mental health, musculoskeletal)? @ -Differential Abdominal Pain Women: Appendicitis, Cholecystitis, diverticulosis, ischemic bowel, pancreatitis, hepatitis, UTI, gastroenteritis, AAA, incarcerated hernia, bowel obstruction, constipation, inflammatory bowel, hepatitis, peptic ulcer disease, splenic infarction, perforated viscus, vulvitis, ovarian torsion, PID, kidney stone, placenta abruption, this is not meant to be an all-inclusive list EKG interpreted by me (3pts min.). @ -none X-rays interpreted by me (1pt min.). @ -None done CT interpreted by me (1pt min.). @ -Revealed fluid-filled small bowel loops throughout the abdomen could reflect mild enteritis and mild sigmoid diverticulosis without evidence for acute diverticulitis as determined by radiology U/S interpreted by me (1pt. min.). @ -None done What testing was considered but not performed or refused? (CT, X-rays, U/S, labs)? Why? @ -None What meds were considered but not given or refused? Why? @ -None Did you discuss the management of the patient with other professionals (professionals i.e. , PA, [facility], lab, RT, psych nurse, neonatal social worker, recreation program specialist, teacher, chief human resources officer, piano case and bench assembler)? Give summary @ -No Was smoking cessation discussed for >3mins.? @ -No Was critical care preformed (if so, how long)? @ -No Were there social determinants of health that impacted care today? How? (Homelessness, low income, unemployed, alcoholism, drug addiction, transportation, low edu. Level, literacy, decrease access to med. care, fci, rehab)? @ -No Was there de-escalation of care discussed even if they declined (Discuss DNR or withdrawal of care, Hospice)? DNR status @ -No What co-morbidities impacted this encounter? (DM, HTN, Smoking, COPD, CAD, Cancer, CVA, ARF, Chemo, Hep., AIDS, mental health diagnosis, sleep apnea, morbid obesity)? @ -Diabetes, hypertension Was patient admitted / discharged? Hospital course, mention meds given and rou te, prescriptions, significant lab abnormalities, going to OR and other pertinent info. @ -Discharge. 62-year-old female presented to the ED with chief complaint of abdominal discomfort. Patient given Tylenol for pain relief. Lactate elevated at 2.4. CT with mild enteritis and mild sigmoid diverticulosis without evidence for acute diverticulitis as determined by radiology. Undiagnosed new problem with uncertain prognosis? @ -No Drug Therapy requiring intensive monitoring for toxicity (Heparin, Nitro, Insulin, Cardizem)? @ -No Were any procedures done? @ -No Diagnosis/symptom? @ -gastroenteritis Acute, or Chronic, or Acute on Chronic? @ -Acute Uncomplicated (without systemic symptoms) or Complicated (systemic symptoms)? @ -Uncomplicated Side effects of treatment? @ -No Exacerbation, Progression, or Severe Exacerbation? @ -No Poses a threat to life or bodily function? How? (Chest pain, [place], [place], pneumonia, PE, COPD, DKA, ARF, appy, cholecystitis, CVA, Diverticulitis, Homicidal, Suicidal, threat to staff... and all critical care pts) @ -No (Marisol Quinonez) - Lab Data Lab Results 04/27/23 04/27/23 04/27/23 Range/Units 10:31 10:31 10:31 WBC 7.9 (3.8-10.6) k/uL RBC 4.47 (3.80-5.40) m/uL Hgb 14.1 (11.4-16.0) gm/dL Hct 42.1 (34.0-46.0) % MCV 94.2 (80.0-100.0) fL MCH 31.5 (25.0-35.0) pg MCHC 33.4 (31.0-37.0) g/dL RDW 12.5 (11.5-15.5) % Plt Count 277 (150-450) k/uL MPV 7.3 Neutrophils % 65 % Lymphocytes % 26 % Monocytes % 5 % Eosinophils % 1 % Basophils % 1 % Neutrophils # 5.2 (1.3-7.7) k/uL Lymphocytes # 2.1 (1.0-4.8) k/uL Monocytes # 0.4 (0-1.0) k/uL Eosinophils # 0.1 (0-0.7) k/uL Basophils # 0.0 (0-0.2) k/uL Sodium 134 L (137-145) mmol/L Potassium 4.3 (3.5-5.1) mmol/L Chloride 100 (98-107) mmol/L Carbon Dioxide 25 (22-30) mmol/L Anion Gap 9 mmol/L BUN 30 H (7-17) mg/dL Creatinine 0.72 (0.52-1.04) mg/dL Est GFR (CKD-EPI)AfAm >90 (>60 ml/min/1.73 sqM) Est GFR (CKD-EPI)NonAf >90 (>60 ml/min/1.73 sqM) Glucose 368 H (74-99) mg/dL Lactic Ac Sepsis Rflx Plasma Lactic Acid Bernardo 2.4 H* (0.7-2.0) mmol/L Calcium 9.7 (8.4-10.2) mg/dL Total Bilirubin 0.8 (0.2-1.3) mg/dL AST 26 (14-36) U/L ALT 24 (4-34) U/L Alkaline Phosphatase 54 (38-126) U/L Total Protein 7.1 (6.3-8.2) g/dL Albumin 4.5 (3.5-5.0) g/dL Lipase 70 (23-300) U/L Urine Color Urine Appearance (Clear) Urine pH (5.0-8.0) Ur Specific [place] (1.001-1.035) Urine Protein (Negative) Urine Glucose (UA) (Negative) Urine Ketones (Negative) Urine Blood (Negative) Urine Nitrite (Negative) Urine Bilirubin (Negative) Urine Urobilinogen (<2.0) mg/dL Ur Leukocyte Esterase (Negative) 04/27/23 04/27/23 Range/Units 10:31 11:07 WBC (3.8-10.6) k/uL RBC (3.80-5.40) m/uL Hgb (11.4-16.0) gm/dL Hct (34.0-46.0) % MCV (80.0-100.0) fL MCH (25.0-35.0) pg MCHC (31.0-37.0) g/dL RDW (11.5-15.5) % Plt Count (150-450) k/uL MPV Neutrophils % % Lymphocytes % % Monocytes % % Eosinophils % % Basophils % % Neutrophils # (1.3-7.7) k/uL Lymphocytes # (1.0-4.8) k/uL Monocytes # (0-1.0) k/uL Eosinophils # (0-0.7) k/uL Basophils # (0-0.2) k/uL Sodium (137-145) mmol/L Potassium (3.5-5.1) mmol/L Chloride (98-107) mmol/L Carbon Dioxide (22-30) mmol/L Anion Gap mmol/L BUN (7-17) mg/dL Creatinine (0.52-1.04) mg/dL Est GFR (CKD-EPI)AfAm (>60 ml/min/1.73 sqM) Est GFR (CKD-EPI)NonAf (>60 ml/min/1.73 sqM) Glucose (74-99) mg/dL Lactic Ac Sepsis Rflx Y Plasma Lactic Acid Bernardo (0.7-2.0) mmol/L Calcium (8.4-10.2) mg/dL Total Bilirubin (0.2-1.3) mg/dL AST (14-36) U/L ALT (4-34) U/L Alkaline Phosphatase (38-126) U/L Total Protein (6.3-8.2) g/dL Albumin (3.5-5.0) g/dL Lipase (23-300) U/L Urine Color Colorless Urine Appearance Clear (Clear) Urine pH 5.5 (5.0-8.0) Ur Specific [place] 1.023 (1.001-1.035) Urine Protein Negative (Negative) Urine Glucose (UA) 4+ H (Negative) Urine Ketones Negative (Negative) Urine Blood Negative (Negative) Urine Nitrite Negative (Negative) Urine Bilirubin Negative (Negative) Urine Urobilinogen <2.0 (<2.0) mg/dL Ur Leukocyte Esterase Negative (Negative) Disposition <Hugo Rodarte - Last Filed: 04/27/23 10:03> Is patient prescribed a controlled substance at d/c from ED?: No <Marisol Quinonez - Last Filed: 04/27/23 13:43> Clinical Impression: Gastroenteritis Disposition: HOME SELF-CARE Condition: Good Instructions (If sedation given, give patient instructions): Gastroenteritis (ED) Additional Instructions: Please return to the Emergency Department if symptoms worsen or any other concerns. Discussed with the patient oral rehydration and bowel rest by consuming clear liquids and following the BRAT diet Referrals: Amy Zepeda MD [Primary Care Provider] - 1-2 days
[2023-04-27 10:52] LABS: Basophils % (A) 1 %; Eosinophils # (A) 0.1 k/uL (0-0.7); Eosinophils % (A) 1 %; HCT 42.1 % (34.0-46.0); HGB 14.1 gm/dL (11.4-16.0); Lymphocytes # (A) 2.1 k/uL (1.0-4.8); Lymphocytes % (A) 26 %; MCH 31.5 pg (25.0-35.0); MCHC 33.4 g/dL (31.0-37.0); MCV 94.2 fL (80.0-100.0); Mean Platelet Volume 7.3; Monocytes # (A) 0.4 k/uL (0-1.0); Monocytes % (A) 5 %; Neutrophils # (A) 5.2 k/uL (1.3-7.7); Neutrophils % (A) 65 %; Platelet Count 277 k/uL (150-450); RBC 4.47 m/uL (3.80-5.40); RDW 12.5 % (11.5-15.5); WBC 7.9 k/uL (3.8-10.6)
[2023-04-27 11:05] LABS: ALT 24 U/L (4-34); AST 26 U/L (14-36); African American GFR (CKD) >90 (>60 ml/min/1.73 sqM); Albumin 4.5 g/dL (3.5-5.0); Alkaline Phosphatase 54 U/L (38-126); Anion Gap 9 mmol/L; Blood Urea Nitrogen 30 mg/dL (7-17); Calcium 9.7 mg/dL (8.4-10.2); Carbon Dioxide 25 mmol/L (22-30); Chloride 100 mmol/L (98-107); Glucose 368 mg/dL (74-99); Lipase 70 U/L (23-300); Non-African American GFR(CKD) >90 (>60 ml/min/1.73 sqM); Potassium 4.3 mmol/L (3.5-5.1); Sodium 134 mmol/L (137-145); Total Bilirubin 0.8 mg/dL (0.2-1.3); Total Protein 7.1 g/dL (6.3-8.2)
[2023-04-27 11:09] LABS: Appearance,Urine Clear (Clear); Bilirubin,Urine Negative (Negative); Blood,Urine Negative (Negative); Color,Urine Colorless; Glucose,Urine (UA) 4+ (Negative); Ketones,Urine Negative (Negative); Leukocyte Esterase,Urine Negative (Negative); Nitrite,Urine Negative (Negative); PH, Urine 5.5 (5.0-8.0); Protein,Urine Negative (Negative); Specific Gravity,Urine 1.023 (1.001-1.035); Urobilinogen,Urine <2.0 mg/dL (<2.0)
[2023-04-27] MEDS: SODIUM CHLORIDE 0.9% 1,000 ML IV STA (11:18)
[2023-04-27] MEDS: ACETAMINOPHEN TAB 325 MG TAB PO STA (11:19)
--- NOTE | 2023-04-27 11:38 | XR ---
EXAMINATION TYPE: XR KUB DATE OF EXAM: 04/27/2023 Comparison: None Clinical History: 62-year-old female with generalized abdominal pain Findings: No evidence for free intraperitoneal air. Calcifications in the left upper abdomen measuring up to 1. 4 cm may be renal calculi or vascular calcifications. Slight degenerative levoconvex curvature lumbar spine. Nonobstructive bowel gas pattern. No significant stool burden. Impression: 1. Calcifications measuring up to 1.4 cm left upper quadrant probably vascular calcifications rather than left renal stone. 2. Nonobstructive bowel gas pattern. No significant stool burden.
--- NOTE | 2023-04-27 13:07 | CT ---
EXAMINATION TYPE: CT abdomen pelvis w con DATE OF EXAM: 04/27/2023 COMPARISON: 12/23/2019 HISTORY: 62-year-old female abdominal pain, bloody stool TECHNIQUE: Contiguous axial scanning of the abdomen and pelvis following administration of 100 ml Iso cornel 300 IV contrast. Delayed images through the kidneys and coronal/sagittal reconstructions perform ed. CT DLP: 1691.7 mGycm Automated exposure control for dose reduction was used. FINDINGS: Heart borderline enlarged without pericardial effusion. Scattered coronary calcifications a re noted. Some strandy atelectasis in the lower lungs. No pleural effusion. There is a small hiatal hernia. Liver enlarged at 21.2 cm when diminished attenuation. No focal lesion. Portal venous system is paten t. No biliary ductal dilatation. Gallbladder, right adrenal gland, kidneys, spleen with small inferior splenule, and pancreas show no gross abnormality. Slight nodular thickening of the left adrenal gland is unchanged. Separate origin of the right common hepatic artery directly from the aorta. Scattered prominent fluid-filled small bowel loops throughout the abdomen. No dilated small bowel, fr ee fluid, or free air. Normal appendix. Scattered mild stool. Mild sigmoid diverticulosis. No pericolonic inflammatory Bladder urine distended. Mild pelvic floor relaxation. Multiple pelvic phlebolith. Uterus surgically absent. Neither ovary clearly identified. No abnormal fluid collection in the pelvis or pelvic lympha denopathy. Some chronic appearing skin thickening in the periumbilical region. Mild generalized anasarca change. Bones: Moderate to advanced multilevel spondylotic change in the visualized lower thoracic and lumbar spine. Nearly grade 2 degenerative anterolisthesis L4-L5 and grade 1 retrolisthesis T12-L1. [place] 's disease. Focal severe spinal canal stenosis L3-L4. IMPRESSION: 1. PROMINENT FLUID-FILLED SMALL BOWEL LOOPS THROUGHOUT THE ABDOMEN COULD REFLECT A MILD ENTERITIS. 2. MILD SIGMOID DIVERTICULOSIS WITHOUT EVIDENCE FOR ACUTE DIVERTICULITIS. 3. HEPATOMEGALY AT 21.2 CM WITH AT LEAST MODERATE HEPATIC STEATOSIS. APPROPRIATE CLINICAL MANAGEMENT IS ADVISED. 4. SMALL HIATAL HERNIA.
[2023-04-27 14:07] VITALS: BP 142/78; PULSE 65; TEMP 98.2
== END 2023-04-27 13:47 | disposition home or self-care (01) ==
LOC: EC 09:10
DX: K52.9 Noninfective gastroenteritis and colitis, unspecified (principal); E11.9 Type 2 diabetes mellitus without complications; E78.5 Hyperlipidemia, unspecified; I10 Essential (primary) hypertension; Z79.4 Long term (current) use of insulin; Z79.82 Long term (current) use of aspirin; Z79.899 Other long term (current) drug therapy; Z88.0 Allergy status to penicillin; Z88.1 Allergy status to other antibiotic agents; Z88.8 Allergy status to other drugs, medicaments and biological substances
CPT/HCPCS: 99284; 96360; 96361; 36415; 80053; 83605; 83690; 85025; 81003; 74018; 74177; Q9967

== ENCOUNTER → 2023-06-05 | Outpatient (CLI) | payer BC ==
--- NOTE | 2023-06-06 15:14 | MM ---
Reason for Exam: Screening (asymptomatic). Last mammogram was performed 1 year(s) and 1 month(s) ago. Patient History: Menarche at age 10. First Full-Term at age 22. Left ovary removed at age 40. Right ovary removed at age 40. Hysterectomy at age 40. Postmenopausal. Patient has history of breast feeding. Patient used Hormonal Contraceptives for 2 years. 08/01/2013, Benign Core Biopsy on the right side. Maternal grandmother had breast cancer. Mother had breast cancer, age 60. Risk Values: Natasha 5 year model risk: 3.8%. NCI Lifetime model risk: 16.3%. Prior Study Comparison: 05/19/2021 Bilateral Screening Mammogram, [facility]. 05/25/2021 Right Diagnostic Mammogram, [facility]. 05/26/2022 Bilateral MG 3D screening mammo w/cad, [facility]. Tissue Density: The breasts are heterogeneously dense, which may obscure small masses. Findings: Analyzed By CAD. There is no suspicious group of microcalcifications or new suspicious mass in either breast. Overall Assessment: Negative, BI-RAD 1 Management: Screening Mammogram of both breasts in 1 year. . Patient should continue monthly self-breast exams. A clinical breast exam by your physician is recommended on an annual basis. This exam should not preclude additional follow-up of suspicious palpable abnormalities. Note on Natasha scores and lifetime risk: 1. A Natasha score greater than 3% is considered moderate risk. If this is the case, consider specialist referral to assess eligibility for a risk reducing agent. 2. If overall lifetime risk for the development of breast cancer is 20% or higher, the patient may qualify for future screening with alternating mammogram and breast MRI. Electronically signed and approved by: Edil Schwab M.D. Radiologis
== END | disposition home or self-care (01) ==
LOC: RADMAMWWP 06:56
PROVIDERS: ATTEND Family Medicine
DX: Z12.31 Encounter for screening mammogram for malignant neoplasm of breast (principal); Z80.3 Family history of malignant neoplasm of breast; Z78.0 Asymptomatic menopausal state
CPT/HCPCS: 77063; 77067

== ENCOUNTER → 2024-06-17 | Outpatient (CLI) | payer BC ==
--- NOTE | 2024-06-17 09:21 | MM ---
Reason for Exam: Screening (asymptomatic). Last screening mammogram was performed 12 month(s) ago. Patient History: Menarche at age 10. First Full-Term at age 22. Left ovary removed at age 40. Right ovary removed at age 40. Hysterectomy at age 40. Postmenopausal. Patient has history of breast feeding. Patient used Hormonal Contraceptives for 2 years. 08/01/2013, Benign Core Biopsy on the right side. Maternal grandmother had breast cancer. Mother had breast cancer, age 60. Risk Values: Natasha 5 year model risk: 3.9%. NCI Lifetime model risk: 15.8%. Prior Study Comparison: 05/25/2021 Right Diagnostic Mammogram, [facility]. 05/26/2022 Bilateral MG 3D screening mammo w/cad, [facility]. 06/05/2023 Bilateral MG 3D screening mammo w/cad, [facility]. Tissue Density: The breasts are heterogeneously dense, which may obscure small masses. Findings: Analyzed By CAD. There is no suspicious group of microcalcifications or new suspicious mass in either breast. Overall Assessment: Benign, BI-RAD 2 Management: Screening Mammogram of both breasts in 1 year. . Patient should continue monthly self-breast exams. A clinical breast exam by your physician is recommended on an annual basis. This exam should not preclude additional follow-up of suspicious palpable abnormalities. Note on Natasha scores and lifetime risk: 1. A Natasha score greater than 3% is considered moderate risk. If this is the case, consider specialist referral to assess eligibility for a risk reducing agent. 2. If overall lifetime risk for the development of breast cancer is 20% or higher, the patient may qualify for future screening with alternating mammogram and breast MRI. [facility], , 06/17/2024 9:18 AM. Electronically signed and approved by: Edil Schwab M.D. Radiologis
== END | disposition home or self-care (01) ==
LOC: RADMAMWWP 07:13
PROVIDERS: ATTEND Family Medicine
DX: Z12.31 Encounter for screening mammogram for malignant neoplasm of breast (principal); R92.333 Mammographic heterogeneous density, bilateral breasts; Z78.0 Asymptomatic menopausal state; Z80.3 Family history of malignant neoplasm of breast; Z92.0 Personal history of contraception
CPT/HCPCS: 77063; 77067

== ENCOUNTER → 2024-09-25 | Outpatient (CLI) | payer BC | END | disposition home or self-care (01) | LOC: LABPAT 11:16 | PROVIDERS: ATTEND Orthopaedic Surgery | DX: Z01.818 Encounter for other preprocedural examination (principal); M17.11 Unilateral primary osteoarthritis, right knee; Z22.322 Carrier or suspected carrier of Methicillin resistant Staphylococcus aureus | CPT/HCPCS: 87070 ==